=== PATIENT | female | born 1960 | race African-American/Black ===

== ENCOUNTER 2017-05-13 11:52 | Emergency (ER) | payer SELFPAY ==
[2017-05-13 14:54] LABS: ANION GAP 9 (5-19); BLOOD UREA NITROGEN 9 mg/dL (7-20); CALCIUM 10.1 mg/dL (8.4-10.2); CARBON DIOXIDE 29 mmol/L (22-30); CHLORIDE 105 mmol/L (98-107); CREATININE RESULT 0.82 mg/dL (0.52-1.25); GLUCOSE 102 mg/dL (75-110); POTASSIUM 5.2 mmol/L (3.6-5.0); SODIUM 142.9 mmol/L (137-145)
--- NOTE | 2017-05-13 15:09 | ER Document Report ---
ED General - General Chief Complaint: Abdominal Pain Stated Complaint: LEG PAIN Time Seen by Provider: 05/13/17 14:02 Mode of Arrival: Ambulatory Information source: Patient, Friend TRAVEL OUTSIDE OF THE [place] IN LAST 30 DAYS: No - HPI Onset: Last week Onset/Duration: Gradual Severity: Mild - With complaints of muscle cramping to her legs and abdomen. Nausea vomiting diarrhea fevers chills or change in appetite. Her shortness breath does not have a primary care physician and has not seen one in quite some time is not on any medic medicine for any chronic medical conditions Associated symptoms: None Exacerbated by: denies: Walking, Deep breathing - Related Data Allergies/Adverse Reactions: Penicillins Allergy (Verified 10/12/15 00:55) gonzalez Allergy (Uncoded 10/12/15 00:55) mushrooms Allergy (Uncoded 10/12/15 00:55) Past Medical History - General Information source: Patient - Social History Smoking Status: Current Every Day Smoker Chew tobacco use (# tins/day): No Smoking Education Provided: No Frequency of alcohol use: Occasional Drug Abuse: None Family History: Reviewed & Not Pertinent, CAD, Malignancy - Past Medical History Cardiac Medical History: Reports: Hx Hypercholesterolemia, Hx Hypertension Denies: Hx Coronary Artery Disease, Hx Heart Attack Pulmonary Medical History: Reports: Hx Bronchitis, Hx COPD Denies: Hx Asthma, Hx Pneumonia Neurological Medical History: Denies: Hx Cerebrovascular Accident, Hx Seizures Endocrine Medical History: Reports: Hx Diabetes Mellitus Type 2 Renal/ Medical History: Denies: Hx Peritoneal Dialysis Musculoskeltal Medical History: Denies Hx Arthritis Psychiatric Medical History: Denies: Hx Depression Past Surgical History: Reports: Hx Section - X3, Hx Tubal Ligation - Immunizations Immunizations up to date: Yes Hx Diphtheria, Pertussis, Tetanus Vaccination: Yes Review of Systems - Review of Systems Constitutional: No symptoms reported Cardiovascular: No symptoms reported Respiratory: No symptoms reported Gastrointestinal: No symptoms reported - Muscle cramping Genitourinary: No symptoms reported Musculoskeletal: No symptoms reported - Muscle cramping. denies: Back pain, Joint pain, Joint swelling, Muscle pain, Muscle stiffness, Neck pain, Leg swelling, Ankle swelling Hematologic/Lymphatic: denies: No symptoms reported Neurological/Psychological: No symptoms reported Physical Exam - Vital signs Vitals: Temp Pulse Resp BP Pulse Ox 98.1 F 73 18 181/85 H 96 05/13/17 12:09 05/13/17 12:09 05/13/17 12:09 05/13/17 12:09 05/13/17 12:09 - General General appearance: Appears well, Alert - Respiratory Respiratory status: No respiratory distress - Cardiovascular Rhythm: Regular - Abdominal Inspection: Normal - Extremities General upper extremity: Normal inspection, Nontender, Normal color, Normal ROM , Normal temperature General lower extremity: Normal inspection, Nontender, Normal color, Normal ROM , Normal temperature, Normal weight bearing. No: Elba's sign - Neurological Neuro grossly intact: Yes Cognition: Normal Orientation: AAOx4 Esha Coma Scale Eye Opening: Spontaneous Esha Coma Scale Verbal: Oriented Esha Coma Scale Motor: Obeys Commands Esha Coma Scale Total: 15 Speech: Normal Motor strength normal: LUE, RUE, LLE, RLE Sensory: Normal Course - Re-evaluation Re-evalutation: 05/13/17 15:12 Presents emergency department with 1 week history of muscle cramping in her legs and abdomen. Says she has had this before but it was short-lived episodes seem to follow a little bit more this week she is not drinking as much as she usually does inform a water and does drink some caffeine. She denies any chronic medical conditions did not have a primary care physician no headache chest pain cough shortness of breath nausea vomiting dull pain diarrhea constipation urinary symptoms chest pain shortness of breath or history of DVT or pulmonary emboli well-appearing nontoxic negative acute hypo-Vicky anemia. Patient is discharged fluid hydration multivitamin follow primary care physician in 3-4 days and discussed reasons for ED return sooner - Vital Signs Vital signs: Temp Pulse Resp BP Pulse Ox 98.1 F 73 18 181/85 H 96 05/13/17 12:09 05/13/17 12:09 05/13/17 13:56 05/13/17 12:09 05/13/17 12:09 - Laboratory Result Diagrams: 05/13/17 14:00 Laboratory results interpreted by me: 05/13/17 14:00 Potassium 5.2 H Discharge - Discharge Clinical Impression: muscle cramping Condition: Stable Disposition: HOME, SELF-CARE Additional Instructions: You have been seen and evaluated in the emergency department for muscle cramping in your leg and in your stomach area. We have checked her potassium it is not low. At this time I want you to increase your fluids make sure you drink in 8-10 glasses of water per day and given you a family doctor for follow- up to call for an appointment on Sunday to be seen in 3-5 days if this increases worsens or using any concerns whatsoever return to emergency department immediately. Forms: Return to Work Referrals: [facility] [Provider Group] - Follow up in 3-5 days (call In a.m. to get follow-up appointment in 3-5 days return for increasing worsening or new symptoms)
[2017-05-13 15:24] VITALS: BP 188/73
== END 2017-05-13 15:25 | disposition home or self-care (01) ==
LOC: ER 11:52
DX: R25.2 Cramp and spasm (principal); R11.2 Nausea with vomiting, unspecified; R19.7 Diarrhea, unspecified; R50.9 Fever, unspecified; E78.00 Pure hypercholesterolemia, unspecified; I10 Essential (primary) hypertension; J44.9 Chronic obstructive pulmonary disease, unspecified; F17.200 Nicotine dependence, unspecified, uncomplicated; E11.9 Type 2 diabetes mellitus without complications; Z88.0 Allergy status to penicillin; Z98.51 Tubal ligation status
CPT/HCPCS: 36415; 80048; 99283

== ENCOUNTER 2017-10-29 23:27 | Emergency (ER) | payer MEDICAID ==
[2017-10-30] MEDS ORDERED: MORPHINE SULFATE 10 MG/ML INJ IV PRN (01:11)
[2017-10-30] MEDS ORDERED: NORMAL SALINE 1000 ML 1,000 ML IV ONE (01:11)
--- NOTE | 2017-10-30 01:12 | ER Document Report ---
ED General - General Chief Complaint: Abdominal Pain Stated Complaint: ABDOMINAL PAIN Time Seen by Provider: 10/30/17 00:53 Notes: Patient is a 57-year-old woman with a past medical history of COPD and hypertension currently off all antihypertensive medications who presents with 1 week of right-sided abdominal pain. She describes the pain as being located over the entire right side of her abdomen and flank. She states coughing or moving worsens the pain. She states lying flat improves the pain. She thinks that the pain may be related to her extensive amount of coughing. The patient is a dull, constant, aching pain. She denies any associated vomiting, diarrhea or fever. No history of similar symptoms in the past. She has had several sections but no additional abdominal surgeries in the past. She has not seen her primary doctor regarding today's concerns. TRAVEL OUTSIDE OF THE [place] IN LAST 30 DAYS: No - Related Data Allergies/Adverse Reactions: Penicillins Allergy (Verified 10/12/15 00:55) gonzalez Allergy (Uncoded 10/12/15 00:55) mushrooms Allergy (Uncoded 10/12/15 00:55) Past Medical History - General Information source: Patient - Social History Smoking Status: Former Smoker Chew tobacco use (# tins/day): No Frequency of alcohol use: None Drug Abuse: None Lives with: Spouse/Significant other Family History: Reviewed & Not Pertinent, CAD, Malignancy Patient has suicidal ideation: No Patient has homicidal ideation: No - Past Medical History Cardiac Medical History: Reports: Hx Hypercholesterolemia, Hx Hypertension Denies: Hx Coronary Artery Disease, Hx Heart Attack Pulmonary Medical History: Reports: Hx Bronchitis, Hx COPD Denies: Hx Asthma, Hx Pneumonia Neurological Medical History: Denies: Hx Cerebrovascular Accident, Hx Seizures Endocrine Medical History: Reports: Hx Diabetes Mellitus Type 2 Renal/ Medical History: Denies: Hx Peritoneal Dialysis Musculoskeltal Medical History: Denies Hx Arthritis Psychiatric Medical History: Denies: Hx Depression Past Surgical History: Reports: Hx Section - X3, Hx Tubal Ligation - Immunizations Immunizations up to date: Yes Hx Diphtheria, Pertussis, Tetanus Vaccination: Yes Review of Systems - Review of Systems Notes: Constitutional: Negative for fever. HENT: Negative for sore throat. Eyes: Negative for visual changes. Cardiovascular: Negative for chest pain. Respiratory: Negative for shortness of breath. Gastrointestinal: Positive for abdominal pain Genitourinary: Negative for dysuria. Musculoskeletal: Negative for back pain. Skin: Negative for rash. Neurological: Negative for headaches, weakness or numbness. 10 point ROS negative except as marked above and in HPI. Physical Exam - Vital signs Vitals: Temp Pulse Resp BP Pulse Ox 98.6 F 88 18 206/88 H 97 10/29/17 23:33 10/29/17 23:33 10/29/17 23:33 10/29/17 23:33 10/29/17 23:33 Interpretation: Hypertensive Notes: PHYSICAL EXAMINATION: GENERAL: Well-appearing, well-nourished and in no acute distress. HEAD: Atraumatic, normocephalic. EYES: Pupils equal round and reactive to light, extraocular movements intact, sclera anicteric, conjunctiva are normal. ENT: nares patent, oropharynx clear without exudates. Moist mucous membranes. NECK: Normal range of motion, supple without lymphadenopathy LUNGS: Breath sounds clear to auscultation bilaterally and equal. No wheezes rales or rhonchi. HEART: Regular rate and rhythm without murmurs ABDOMEN: Soft, mild diffuse tenderness to the right upper, right middle and right lower quadrants without any otherwise localized tenderness, normoactive bowel sounds. No guarding, no rebound. No masses appreciated. EXTREMITIES: Normal range of motion, no pitting or edema. No cyanosis. NEUROLOGICAL: No focal neurological deficits. Moves all extremities spontaneously and on command. PSYCH: Normal mood, normal affect. SKIN: Warm, Dry, normal turgor, no rashes or lesions noted. Course - Re-evaluation Re-evalutation: 10/30/17 01:11 Patient presents with 1 week of right-sided abdominal pain. On exam patient is overall very well in appearance, does have some focal rebound tenderness to the right lower and right upper quadrant. Negative Asher sign. No CVA tenderness. Patient reports extensive coughing secondary to COPD and believes she may have strained a muscle for abdominal wall but is also concerned that month something more concerning could be ongoing. Differential includes a possible acute appendicitis, less likely acute biliary pathology, and very low clinical suspicion for acute mesenteric ischemia. Given her duration of symptoms and reported degree of pain, will obtain labs and a CT abdomen pelvis to further assess for these pathologies. 10/30/17 03:40 CT and labs are unremarkable. Patient's pain is improved. Repeat abdominal exam remains benign. Given patient's history of pain starting after long periods of coughing I suspect there is a possibility that this could be a strained abdominal wall muscle. At this time will discharge with return precautions and follow-up recommendations. Verbal discharge instructions given a the bedside and opportunity for questions given. Medication warnings reviewed. Patient is in agreement with this plan and has verbalized understanding of return precautions and the need for primary care follow-up in the next 24-72 hours. - Vital Signs Vital signs: Temp Pulse Resp BP Pulse Ox 98.6 F 88 18 206/88 H 97 10/29/17 23:33 10/29/17 23:33 10/29/17 23:33 10/29/17 23:33 10/29/17 23:33 - Laboratory Result Diagrams: 10/30/17 01:10 10/30/17 01:10 Laboratory results interpreted by me: 10/30/17 10/30/17 10/30/17 01:10 01:10 01:10 Lymphocytes % 46.4 H Sodium 146.0 H Calcium 10.5 H Urine Protein 30 H Urine Urobilinogen 4.0 H Urine Ascorbic Acid 20 H - Diagnostic Test Radiology reviewed: Reports reviewed Discharge - Discharge Clinical Impression: Essential hypertension, Right sided abdominal pain Condition: Stable Disposition: HOME, SELF-CARE Additional Instructions: You have been seen in the Emergency Department (ED) for abdominal pain. Your evaluation did not identify a clear cause of your symptoms but was generally reassuring. Your labs and CT scan are normal today. It is possible your symptoms are related to a strained abdominal wall muscle. Please follow up with your doctor as soon as possible regarding today's emergent visit and the symptoms that are bothering you. Return to the ED if your abdominal pain worsens or fails to improve, you develop bloody vomiting, bloody diarrhea, you are unable to tolerate fluids due to vomiting, fever greater than 101, or other symptoms that concern you. Forms: Elevated Blood Pressure Referrals: COLIN CARRILLO DO [Primary Care Provider] - Follow up as needed
[2017-10-30 01:32] LABS: BILIRUBIN,URINE NEGATIVE (NEGATIVE); COLOR,URINE YELLOW; GLUCOSE, URINE NEGATIVE (NEGATIVE); KETONES,URINE NEGATIVE (NEGATIVE); LEUKOCYTE ESTERASE,URINE NEGATIVE (NEGATIVE); NITRITE,URINE NEGATIVE (NEGATIVE); PROTEIN,URINE 30 mg/dL (NEGATIVE); URINE SPECIFIC GRAVITY 1.026
[2017-10-30 01:36] LABS: ABSOLUTE EOSINOPHILS # (AUTO) 0.1 10^3/uL (0.0-0.6); ABSOLUTE LYMPHOCYTES (AUTO) 3.2 10^3/uL (0.5-4.7); ABSOLUTE MONOCYTES (AUTO) 0.6 10^3/uL (0.1-1.4); APPEARANCE,URINE CLEAR; BASOPHILS % (AUTO) 0.6 % (0-2); EOSINOPHILS % (AUTO) 1.1 % (0-6); HEMATOCRIT 44.5 % (36.0-47.0); HEMOGLOBIN 15.3 g/dL (12.0-15.5); LYMPHOCYTES % (AUTO) 46.4 % (13-45); MEAN CORPUSCULAR HEMOGLOBIN 29.9 pg (27.0-33.4); MEAN CORPUSCULAR HGB CONC 34.3 g/dL (32.0-36.0); MEAN CORPUSCULAR VOLUME 87 fl (80-97); MONOCYTES % (AUTO) 8.9 % (3-13); PLATELET COUNT 198 10^3/uL (150-450); TOTAL CELLS COUNTED % (AUTO) 100 %; WHITE BLOOD COUNT 6.9 10^3/uL (4.0-10.5)
[2017-10-30 02:04] LABS: ALANINE AMINOTRANSFERASE 22 U/L (9-52); ALBUMIN 4.9 g/dL (3.5-5.0); ALKALINE PHOSPHATASE 124 U/L (38-126); ANION GAP 13 (5-19); ASPARTATE AMINO TRANSFERASE 20 U/L (14-36); BILIRUBIN,DIRECT 0.3 mg/dL (0.0-0.4); BILIRUBIN,TOTAL 0.3 mg/dL (0.2-1.3); BLOOD UREA NITROGEN 10 mg/dL (7-20); CALCIUM 10.5 mg/dL (8.4-10.2); CARBON DIOXIDE 29 mmol/L (22-30); CHLORIDE 104 mmol/L (98-107); GLUCOSE 109 mg/dL (75-110); POTASSIUM 4.2 mmol/L (3.6-5.0); TOTAL PROTEIN 8.2 g/dL (6.3-8.2)
[2017-10-30] MEDS ORDERED: LIDOCAINE 5% (700 MG) TRANSDERMAL ADH..PATCH TP ONE (03:19)
--- NOTE | 2017-10-30 06:10 | RADIOLOGY REPORT (SQ) ---
EXAM DESCRIPTION: CT ABDOMEN AND PELVIS WITH CONTRAST CLINICAL HISTORY: rlq pain, rebound COMPARISON: None Available. TECHNIQUE: CT of the abdomen and pelvis are performed during IV bolus administration of iodinated contrast DLP: 667.13 mGycm FINDINGS: Abdomen: The liver has normal size and density. No intrahepatic mass or biliary dilatation. No calcified gallstones. The spleen, pancreas, and adrenal glands are unremarkable. The kidneys have normal size and contour without evidence of solid mass or hydronephrosis. Aortoiliac atherosclerosis. IVC is unremarkable. The portal vein patent. The proximal visceral and renal arteries are patent. No free intraperitoneal air. The stomach and duodenum have normal course. Pelvis: Uterus is not enlarged. Urinary bladder is unremarkable. No free pelvic fluid or lymphadenopathy. Scattered diverticula of the colon without pericolic fat stranding. Normal appendix. The visualized lung bases are clear. No destructive bone lesions identified. Degenerative change of the spine. IMPRESSION: 1. No acute inflammatory or obstructive abnormality identified. 2. Diverticulosis without evidence of acute diverticulitis. This exam was performed according to our departmental dose-optimization program, which includes automated exposure control, adjustment of the mA and/or kV according to patient size and/or use of iterative reconstruction technique.
--- NOTE | 2017-10-30 06:18 | ER Document Report ---
Doctor's Note Notes: 10/30/17 06:17 Patient is a 57-year-old female who presented with right-sided abdominal pain likely from coughing initially. Patient now feels better and would like to leave. CT with no acute findings. Patient will be discharged at this time. Of note, patient is hypertensive and she has not taken her hypertension medications this evening. She will take them when she gets home.
[2017-10-30 06:25] VITALS: BP 188/82
== END 2017-10-30 06:20 | disposition home or self-care (01) ==
LOC: ER 23:27
DX: R10.9 Unspecified abdominal pain (principal); I10 Essential (primary) hypertension; J44.9 Chronic obstructive pulmonary disease, unspecified; E78.00 Pure hypercholesterolemia, unspecified; E11.9 Type 2 diabetes mellitus without complications; Z98.51 Tubal ligation status
CPT/HCPCS: 99284; 96361; 96374; 85025; 36415; 80053; 81001; 74177; J2270; J3490; J7030

== ENCOUNTER 2017-11-20 13:37 | Emergency (ER) | payer MEDICAID ==
[2017-11-20 13:53] VITALS: BP 194/82
== END 2017-11-20 14:27 | disposition left against medical advice (07) ==
LOC: ER 13:37
DX: Z53.21 Procedure and treatment not carried out due to patient leaving prior to being seen by health care provider (principal)

== ENCOUNTER → 2017-11-20 | Outpatient (CLI) | payer MEDICAID ==
--- NOTE | 2017-11-20 16:00 | RADIOLOGY REPORT (SQ) ---
EXAM DESCRIPTION: NM HIDA SCAN WITH CCK COMPLETED DATE/TIME: 11/20/2017 1:39 pm REASON FOR STUDY: R10.11 RIGHT UPPER QUADRANT PAIN R10.11 RIGHT UPPER QUADRANT PAIN COMPARISON: None. RADIONUCLIDE AND DOSE: DOSAGE RADIONUCLIDE: 5.4 millicuries Tc99m Mebrofenin. DOSAGE CCK: 1.5 micrograms. DOSAGE MORPHINE: Not required. The route of agent administration: Intravenous TECHNIQUE: Serial imaging right upper quadrant up to 60 minutes following injection of radionuclide. CCK injected after gallbladder visualized. LIMITATIONS: None. FINDINGS: LIVER: Normal visualization without areas of photopenia. INTRA AND EXTRAHEPATIC BILE DUCTS: Normal accumulation of activity. GALLBLADDER: Normal visualization. Calculated Ejection Fraction of 18%. Below the normal value of 35 % or greater. PHYSICAL RESPONSE: Patients presenting complaint was reproduced. OTHER: No other significant finding. IMPRESSION: LOW GALLBLADDER EJECTION FRACTION. EVIDENCE FOR BILIARY DYSKINESIS. NO CYSTIC OR COMMO N DUCT OBSTRUCTION. TECHNICAL DOCUMENTATION: JOB ID: [id number] [employer]- All Rights Reserved
== END ==
LOC: RAD 11:11
PROVIDERS: ATTEND Physician Assistant
DX: R10.11 Right upper quadrant pain (principal)
CPT/HCPCS: 78227; J2805; A9537; Q9969

== ENCOUNTER → 2017-12-20 | Outpatient (CLI) | payer MEDICAID ==
--- NOTE | 2017-12-20 18:02 | RADIOLOGY REPORT (SQ) ---
EXAM DESCRIPTION: CT CHEST WITHOUT COMPLETED DATE/TIME: 12/20/2017 2:19 pm REASON FOR STUDY: COUGH (R05), PULMONARY NODULE (R91.1) R91.1 SOLITARY PULMONARY NODULE COMPARISON: 06/09/2018 TECHNIQUE: CT scan performed of the chest without intravenous contrast. Images reviewed with lung, soft tissue and bone windows. Reconstructed coronal and sagittal MPR images reviewed. All images st ored on PACS. All CT scanners at this facility use dose modulation, iterative reconstruction, and/or weight based d osing when appropriate to reduce radiation dose to as low as reasonably achievable (ALARA). [facility]: Dose Right [facility]: CareDose [facility]: Dose Right [facility]: Teradose 4D [facility]: Smart [employer] RADIATION DOSE: CT Rad equipment meets quality standard of care and radiation dose reduction techniq ues were employed. CTDIvol: 6.1 mGy. DLP: 229 mGy-cm. mGy. LIMITATIONS: No technical limitations. FINDINGS: LUNGS AND PLEURA: Mild centrilobular emphysema. No masses, infiltrates, pneumothorax. Ti ny calcified granulomas. No pleural effusions, calcifications. HILAR AND MEDIASTINAL STRUCTURES: Calcified nodes. No obvious aneurysm. HEART AND VASCULAR STRUCTURES: No aneurysm. No pericardial effusion. UPPER ABDOMEN: No significant findings. Limited exam. THYROID AND OTHER SOFT TISSUES: No masses. No adenopathy. BONES: No acute finding. HARDWARE: None in the chest. OTHER: No other significant findings. IMPRESSION: Mild centrilobular emphysema. No acute findings. TECHNICAL DOCUMENTATION: JOB ID: [id number] Quality ID # [id number]: Final reports with documentation of one or more dose reduction techniques (e.g., Au tomated exposure control, adjustment of the mA and/or kV according to patient size, use of iterative reconstruction technique) 2010 [email or web address]- All Rights Reserved Reading location - IP/workstation name: [email or web address]
== END ==
LOC: RAD 13:38
PROVIDERS: ATTEND Internal Medicine Critical Care Medicine
DX: R91.1 Solitary pulmonary nodule (principal); R05 Cough; R06.09 Other forms of dyspnea; R12 Heartburn; R04.2 Hemoptysis; K21.9 Gastro-esophageal reflux disease without esophagitis; F17.200 Nicotine dependence, unspecified, uncomplicated
CPT/HCPCS: 71250

== ENCOUNTER → 2018-03-28 | Outpatient (CLI) | payer MEDICAID ==
--- NOTE | 2018-03-28 12:37 | RADIOLOGY REPORT (SQ) ---
EXAM DESCRIPTION: CHEST PA/LATERAL COMPLETED DATE/TIME: 03/28/2018 12:30 pm REASON FOR STUDY: COUGH R05 COUGH COMPARISON: 08/15/2016. NUMBER OF VIEWS: Two view. TECHNIQUE: Frontal and lateral radiographic views of the chest acquired. LIMITATIONS: None. FINDINGS: LUNGS AND PLEURA: No opacities, masses or pneumothorax. No pleural effusion. Attenuated bl ood vessels and flattened ute-diaphragms. MEDIASTINUM AND HILAR STRUCTURES: No masses. No contour abnormalities. HEART AND VASCULAR STRUCTURES: Heart normal in size and contour. No evidence for failure. BONES: No acute findings. HARDWARE: None in the chest. OTHER: No other significant finding. IMPRESSION: COPD. NO ACUTE RADIOGRAPHIC FINDING IN THE CHEST. TECHNICAL DOCUMENTATION: JOB ID: [id number] [employer]- All Rights Reserved Reading location - IP/workstation name: [email or web address]
== END ==
LOC: OD 12:14
PROVIDERS: ATTEND Nurse Practitioner Family
DX: R05 Cough (principal)
CPT/HCPCS: 71046

== ENCOUNTER 2018-03-29 16:58 | Emergency (ER) | payer MEDICAID ==
[2018-03-29] MEDS ORDERED: ALBUTEROL SULFATE 0.083% NEB 2.5 MG/3 ML AMPUL NEB ONE (17:24)
[2018-03-29] MEDS ORDERED: GUAIFENESIN/CODEINE PHOS 100-10 MG/ 5 ML UDC PO ONE (17:25)
--- NOTE | 2018-03-29 17:26 | ER Document Report ---
ED General - General Mode of Arrival: Ambulatory Information source: Patient TRAVEL OUTSIDE OF THE [place]. IN LAST 30 DAYS: No <EVELYNE PEDERSON - Last Filed: 03/29/18 19:40> <ALEX GANDHI - Last Filed: 03/29/18 23:21> - General Chief Complaint: Shortness Of Breath Stated Complaint: BREATHING DIFFICULTY Time Seen by Provider: 03/29/18 17:13 Notes: Patient is a 57 year old female with COPD and hypertension presents to the emergency department complaining of a cough and difficulty breathing onset yesterday. Patient states she was excessivley sneezing and had some congestion 3 days ago and decided to take some NyQuil which she states alleviated her symptoms until yesterday. Patient states she began to excessively cough and have shortness of breath so she decided to go to urgent care where she was given a shot and prescribed steroids, antibiotics and Tessalon Perles. Patient states these medications along with her inhaler has not helped her coughing so she proceeded to come to the emergency department. Patient states she has used her inhaler 2x today without any relief. Patient also mentions being a little confused today. Patient's PCP is Dr. Rivas. Patient is also currently prescribed Amlodipine and Lisinopril. She states she was declared a diabetic but does not agree with diagnosis. (EVELYNE PEDERSON) - Related Data Allergies/Adverse Reactions: Penicillins Allergy (Verified 11/20/17 13:39) gonzalez Allergy (Uncoded 11/20/17 13:39) mushrooms Allergy (Uncoded 11/20/17 13:39) Past Medical History - General Information source: Patient - Social History Smoking Status: Current Every Day Smoker - states she quit 1 day ago Cigarette use (# per day): Yes Chew tobacco use (# tins/day): No Frequency of alcohol use: None Family History: Reviewed & Not Pertinent, CAD, Malignancy - Past Medical History Cardiac Medical History: Reports: Hx Hypercholesterolemia, Hx Hypertension Pulmonary Medical History: Reports: Hx Bronchitis, Hx COPD Endocrine Medical History: Reports: Hx Diabetes Mellitus Type 2 Past Surgical History: Reports: Hx Section - X3, Hx Tubal Ligation - Immunizations Immunizations up to date: Yes Hx Diphtheria, Pertussis, Tetanus Vaccination: Yes <EVELYNE PEDERSON - Last Filed: 03/29/18 19:40> Review of Systems - Review of Systems Constitutional: No symptoms reported EENT: No symptoms reported Cardiovascular: No symptoms reported Respiratory: See HPI, Cough, Short of breath Gastrointestinal: No symptoms reported Genitourinary: No symptoms reported Female Genitourinary: No symptoms reported Musculoskeletal: No symptoms reported Skin: No symptoms reported Hematologic/Lymphatic: No symptoms reported Neurological/Psychological: No symptoms reported -: Yes All other systems reviewed and negative <EVELYNE PEDERSON - Last Filed: 03/29/18 19:40> Physical Exam <EVELYNE PEDERSON - Last Filed: 03/29/18 19:40> <ALEX GANDHI - Last Filed: 03/29/18 23:21> - Vital signs Vitals: Temp Pulse Resp BP Pulse Ox 98.2 F 54 L 18 174/96 H 97 03/29/18 17:30 03/29/18 17:30 03/29/18 17:30 03/29/18 17:30 03/29/18 17:30 - Notes Notes: GENERAL: Alert, interacts well. No acute distress. HEAD: Normocephalic, atraumatic. EYES: Pupils equal, round, and reactive to light. Extraocular movements intact. ENT: Oral mucosa moist, tongue midline. NECK: Full range of motion. Supple. Trachea midline. LUNGS: Clear to auscultation bilaterally, no wheezes, rales, or rhonchi. No respiratory distress. HEART: Regular rate and rhythm. No murmurs, gallops, or rubs. ABDOMEN: Soft, non-tender. Non-distended. Bowel sounds present in all 4 quadrants. EXTREMITIES: Moves all 4 extremities spontaneously. NEUROLOGICAL: Alert and oriented x3. Normal speech. . PSYCH: Normal affect, normal mood. SKIN: Warm, dry, normal turgor. No rashes or lesions noted. (EVELYNE PEDERSON) Course - Laboratory Result Diagrams: 03/29/18 17:19 03/29/18 17:19 <EVELYNE PEDERSON - Last Filed: 03/29/18 19:40> - Laboratory Result Diagrams: 03/29/18 17:19 03/29/18 17:19 <ALEX GANDHI - Last Filed: 03/29/18 23:21> - Re-evaluation Re-evalutation: 03/29/18 20:27 CBC shows leukocytosis 11.6 consistent with both a bacterial bronchitis and steroid administration within the past 2 days, chemistries unremarkable, patient declines another x-ray as she had one 2 days ago at urgent care and states that it was negative for pneumonia. I agree as she is already taking X. Patient was given a breathing treatment here and codeine-containing cough syrup, states that her cough has mostly resolved but she still is a little bit of a rattle in her chest. Patient does still have a small amount of tachycardia however this is not unexpected given the albuterol. Patient will be ambulated with a pulse oximeter and so long as she does not become hypoxic or significantly tachypneic patient will be discharged to home. 03/29/18 21:08 Patient did not become hypoxic or tachypnea, there was some tachycardia but did not cause her any distress while walking. Patient will be discharged to home, instructed to continue using her albuterol inhaler, prescribed Phenergan with codeine cough syrup as well as guaifenesin. Asked to return for chest pain, worsening shortness of breath, worsening cough or any new or concerning symptoms. She already has steroids and antibiotics at home. (ALEX GANDHI) - Vital Signs Vital signs: Temp Pulse Resp BP Pulse Ox 98.2 F 54 L 24 H 168/85 H 94 03/29/18 17:30 03/29/18 17:30 03/29/18 21:01 03/29/18 21:01 03/29/18 21:01 - Laboratory Laboratory results interpreted by me: 03/29/18 03/29/18 17:19 17:19 WBC 11.6 H RBC 5.50 H Hgb 16.7 H Hct 48.2 H RDW 14.8 H Lymphocytes % 47.7 H Absolute Lymphocytes 5.6 H Glucose 159 H Calcium 10.3 H Total Protein 8.7 H Discharge <EVELYNE PEDERSON - Last Filed: 03/29/18 19:40> <ALEX GANDHI - Last Filed: 03/29/18 23:21> - Discharge Clinical Impression: Acute bronchitis Qualifiers: Bronchitis organism: unspecified organism Qualified Code(s): J20.9 - Acute bronchitis, unspecified Condition: Stable Disposition: HOME, SELF-CARE Additional Instructions: Please use your albuterol inhaler up to 2 puffs every 4 hours as needed for cough. You may take the Tessalon Perles that were prescribed to previously 1 capsule every 8 hours as needed for cough. You may also use the cough syrup that I have prescribed here up to every 6 hours for cough. Please also use a humidifier, it may help to decrease your cough. Please continue taking the antibiotics and steroids prescribed you from urgent care until they are gone. You should take guaifenesin (Mucinex) as directed on the box to thin out her mucus. Do not take any combination medications. Return to the emergency department for chest pain, worsening shortness of breath , fevers or any new or concerning symptoms. Prescriptions: Phenylephrine HCl/Cod/Prometh [Phenergan Vc-Codeine Syrup] 5 ml PO QIDP #120 syrup Referrals: MADHU DIALLO FNP-C [NURSE PRACTITIONER] - Follow up as needed Scribe Attestation: 03/29/18 23:21 I personally performed the services described in the documentation, reviewed and edited the documentation which was dictated to the scribe in my presence, and it accurately records my words and actions. (ALEX GANDHI) Scribe Documentation - Scribe Written by Laurie:: Laurie Nolan, 03/29/2018 17:47 acting as scribe for :: Camron <EVELYNE PEDERSON - Last Filed: 03/29/18 19:40>
[2018-03-29 17:52] LABS: ABSOLUTE LYMPHOCYTES (AUTO) 5.6 10^3/uL (0.5-4.7); ABSOLUTE MONOCYTES (AUTO) 0.7 10^3/uL (0.1-1.4); ABSOLUTE NEUT (AUTO) 5.3 10^3/uL (1.7-8.2); ALANINE AMINOTRANSFERASE 35 U/L (9-52); ALKALINE PHOSPHATASE 121 U/L (38-126); ANION GAP 19 (5-19); ASPARTATE AMINO TRANSFERASE 35 U/L (14-36); BASOPHILS % (AUTO) 0.1 % (0-2); BILIRUBIN,DIRECT 0.4 mg/dL (0.0-0.4); BILIRUBIN,TOTAL 0.6 mg/dL (0.2-1.3); BLOOD UREA NITROGEN 15 mg/dL (7-20); CALCIUM 10.3 mg/dL (8.4-10.2); CARBON DIOXIDE 23 mmol/L (22-30); CHLORIDE 103 mmol/L (98-107); EOSINOPHILS % (AUTO) 0.1 % (0-6); GLUCOSE 159 mg/dL (75-110); HEMATOCRIT 48.2 % (36.0-47.0); HEMOGLOBIN 16.7 g/dL (12.0-15.5); LYMPHOCYTES % (AUTO) 47.7 % (13-45); MEAN CORPUSCULAR HEMOGLOBIN 30.4 pg (27.0-33.4); MEAN CORPUSCULAR HGB CONC 34.8 g/dL (32.0-36.0); MEAN CORPUSCULAR VOLUME 88 fl (80-97); MONOCYTES % (AUTO) 6.3 % (3-13); PLATELET COUNT 189 10^3/uL (150-450); POTASSIUM 4.3 mmol/L (3.6-5.0); RED CELL DISTRIBUTION WIDTH 14.8 % (11.5-14.0); SEGMENTED NEUTROPHILS % (AUTO) 45.8 % (42-78); SODIUM 144.5 mmol/L (137-145); TOTAL CELLS COUNTED % (AUTO) 100 %; TOTAL PROTEIN 8.7 g/dL (6.3-8.2); WHITE BLOOD COUNT 11.6 10^3/uL (4.0-10.5)
[2018-03-29 21:14] VITALS: BP 168/85
== END 2018-03-29 21:27 | disposition home or self-care (01) ==
LOC: ER 16:58
DX: J20.9 Acute bronchitis, unspecified (principal); R06.02 Shortness of breath; F17.210 Nicotine dependence, cigarettes, uncomplicated; E78.00 Pure hypercholesterolemia, unspecified; I10 Essential (primary) hypertension; J44.9 Chronic obstructive pulmonary disease, unspecified; E11.9 Type 2 diabetes mellitus without complications; Z98.51 Tubal ligation status
CPT/HCPCS: 36415; 80053; 85025; 94640; 99285

== ENCOUNTER → 2018-05-30 | Outpatient (CLI) | payer SELFPAY ==
--- NOTE | 2018-05-31 09:33 | WOMENS IMAGING REPORT ---
EXAM DESCRIPTION: 3D SCREENING MAMMO BILAT COMPLETED DATE/TIME: 05/30/2018 11:34 am REASON FOR STUDY: SCREENING MAMMO Z12.31 ENCNTR SCREEN MAMMOGRAM FOR MALIGNANT NEOPLASM OF UNIQUE COMPARISON: 05/18/2015. TECHNIQUE: Standard craniocaudal and mediolateral oblique views of each breast recorded using digita l acquisition and breast tomosynthesis. LIMITATIONS: None. FINDINGS: No masses, calcifications or architectural distortion. No areas of suspicion. Read with the assistance of CAD. .[facility] - R2 Cenova Version 1.3 .[facility] Imaging - R2 Cenova Version 1.3 .[facility] Imaging - R2 Cenova Version 2.4 .[facility] - R2 Cenova Version 2.4 .[facility] - R2 [employer] Version 9.2 IMPRESSION: NORMAL MAMMOGRAM. BIRADS 1. BREAST DENSITY: b. There are scattered areas of fibroglandular density. BIRAD: 1 NEGATIVE RECOMMENDATION: ROUTINE SCREENING COMMENT: The patient has been notified of the results by letter per SA requirements. Additional no tification policies are in place for contacting patient with suspicious or incomplete findings. Quality ID #225: The [employer] recommends an annual screening mammogram for women aged 40 years or over. This facility utilizes a reminder system to ensure that all patients receive reminder letters, and/or direct phone calls for appointments. This includes reminders for routine scr eening mammograms, diagnostic mammograms, or other Breast Imaging Interventions when appropriate. Th is patient will be placed in the appropriate reminder system. The [employer] (ACR) has developed recommendations for screening MRI of the breast s in certain patient populations, to be used in conjunction with mammography. Breast MRI surveillanc e may be appropriate for women with more than 20% lifetime risk of developing breast cancer as deter mined by genetic testing, significant family history of the disease, or history of mantle radiation f or Hodgkins Disease. ACR Practice Guidelines 2008. DBT Technology DBT is a type of tomographic mammography. With conventional mammography, overlapping breast tissue ma y make lesions difficult to detect, even with good compression. DBT uses an x-ray tube that rotates a round the breast, taking images at different angles. These images are then combined to create thin sl ices of the breast that the radiologist can view as a 3D reconstruction. The [employer] unit can perform full-field digital mammograms (2D imaging); or DBT (3D imaging); or both, in a combination mode that quickly performs both the mammogram and the tomosynthesis scan while the breast is still compressed. PQRS 6045F: Fluoroscopic imaging is not utilized for breast tomosynthesis. TECHNICAL DOCUMENTATION: FINDING NUMBER: (1) ASSESSMENT: (1) JOB ID: [id number] [employer]- All Rights Reserved Reading location - IP/workstation name: [email or web address]
== END ==
LOC: WI 07:49
PROVIDERS: ATTEND Physician Assistant
DX: Z12.31 Encounter for screening mammogram for malignant neoplasm of breast (principal)
CPT/HCPCS: 77063; 77067

== ENCOUNTER → 2019-06-04 | Outpatient (CLI) | payer MEDICAID ==
--- NOTE | 2019-06-04 10:45 | WOMENS IMAGING REPORT ---
EXAM DESCRIPTION: BILAT SCREENING MAMMO W/CAD COMPLETED DATE/TIME: 06/04/2019 9:20 am REASON FOR STUDY: Z12.31 ENCOUNTER FOR SCREENING MAMMOGRAM FOR MALIGNANT NEOPLASM OF BREAST Z12.31 ENCNTR SCREEN MAMMOGRAM FOR MALIGNANT NEOPLASM OF UNIQUE COMPARISON: 05/30/2018 and 05/18/2015. EXAM PARAMETERS: Standard craniocaudal and mediolateral oblique views of each breast recorded using digital acquisition. Read with the assistance of CAD. .[facility] - [employer] Miter Sawyer Version 9.2 LIMITATIONS: None. FINDINGS: No suspicious masses, suspicious calcifications or architectural distortion. No areas of c oncern. IMPRESSION: Negative MAMMOGRAM. BIRADS 1 BREAST DENSITY: b. There are scattered areas of fibroglandular density. BIRAD: ASSESSMENT: 1 NEGATIVE RECOMMENDATION: ROUTINE SCREENING COMMENT: The patient has been notified of the results by letter per MQSA requirements. Additional no tification policies are in place for contacting patient with suspicious or incomplete findings. Quality ID #225: The [employer] recommends an annual screening mammogram for women aged 40 years or over. This facility utilizes a reminder system to ensure that all patients receive reminder letters, and/or direct phone calls for appointments. This includes reminders for routine scr eening mammograms, diagnostic mammograms, or other Breast Imaging Interventions when appropriate. Th is patient will be placed in the appropriate reminder system. TECHNICAL DOCUMENTATION: FINDING NUMBER: (1) ASSESSMENT: (1) JOB ID: [id number] [employer]- All Rights Reserved Reading location - IP/workstation name: [email or web address]
== END ==
LOC: WI 08:54
PROVIDERS: ATTEND Family Medicine
DX: Z12.31 Encounter for screening mammogram for malignant neoplasm of breast (principal)
CPT/HCPCS: 77067

== ENCOUNTER → 2019-07-14 | Outpatient (CLI) | payer MEDICAID ==
--- NOTE | 2019-07-14 13:26 | RADIOLOGY REPORT (SQ) ---
EXAM DESCRIPTION: CHEST 2 VIEWS COMPLETED DATE/TIME: 07/14/2019 11:29 am REASON FOR STUDY: BRONCHITIS COMPARISON: CT chest 12/20/2017 Chest films 08/15/2016, 10/12/2015 EXAM PARAMETERS: NUMBER OF VIEWS: two views TECHNIQUE: Digital Frontal and Lateral radiographic views of the chest acquired. RADIATION DOSE: NA LIMITATIONS: none FINDINGS: LUNGS AND PLEURA: Mild flattening of the hemidiaphragms from hyperinflation. No focal inf iltrates. No pleural effusion or pneumothorax. MEDIASTINUM AND HILAR STRUCTURES: Calcified left hilar lymph node unchanged HEART AND VASCULAR STRUCTURES: Heart normal size. No evidence for failure. BONES: No acute findings. HARDWARE: None in the chest. OTHER: No other significant finding. IMPRESSION: Hyperinflation from obstructive disease. No acute findings TECHNICAL DOCUMENTATION: JOB ID: [id number] [employer]- All Rights Reserved Reading location - IP/workstation name: [email or web address]
== END ==
LOC: RAD 11:06
PROVIDERS: ATTEND Family Medicine
DX: J40 Bronchitis, not specified as acute or chronic (principal)
CPT/HCPCS: 71046

== ENCOUNTER 2019-12-26 18:58 | Emergency (ER) | payer MEDICAID ==
[2019-12-26] MEDS ORDERED: ONDANSETRON 4 MG TAB.RAPDIS PO ONE (19:47)
--- NOTE | 2019-12-26 19:51 | ER Document Report ---
HPI - HPI Time Seen by Provider: 12/26/19 19:43 Pain Level: 2 Notes: CHIEF COMPLAINT: Flulike symptoms for for 5 days HPI: 59-year-old female presenting to the emergency department complaining of flulike symptoms over the last 5 days. Had body ache for 5 days ago with slight cough and runny nose. Symptoms have improved but she states that she has developed some nausea without vomiting. No dysuria. No abdominal pain. States she was back at the hospital today and believes that she had contracted the flu when she was in the hospital with her for 5 days ago. Patient states that her had a positive flu test today while in the ER and she wanted to make sure that she was not going to have symptoms as extreme as his. ROS: See HPI - all other systems were reviewed and are otherwise negative Constitutional: no fever Eyes: no drainage, no blurred vision ENT: + runny nose, no sore throat Cardiovascular: no chest pain Resp: no SOB, + cough GI: no vomiting, no diarrhea, no abdominal pain, positive nausea : no dysuria Integumentary: no rash Allergy: no hives Musculoskeletal: no extremity pain or swelling Neurological: no numbness/tingling, no weakness MEDICATIONS: I agree with the patient medications as charted by the RN. ALLERGIES: I agree with the allergies as charted by the RN. PAST MEDICAL HISTORY/PAST SURGICAL HISTORY: Reviewed and agree as charted by RN. SOCIAL HISTORY: Reviewed and agree as charted by RN. FAMILY HISTORY: No significant familial comorbid conditions directly related to patient complaint EXAM: Reviewed vital signs as charted by RN. CONSTITUTIONAL: Alert and oriented and responds appropriately to questions. Well-appearing; well-nourished HEAD: Normocephalic; atraumatic EYES: PERRL; Conjunctivae clear, sclerae non-icteric ENT: normal nose; no rhinorrhea; moist mucous membranes; pharynx without lesions noted, no uvula edema or deviation, no tonsillar hypertrophy, phonation normal NECK: Supple without meningismus; non-tender; no cervical lymphadenopathy, no masses CARD: RRR; no murmurs, no clicks, no rubs, no gallops; symmetric distal pulses RESP: Normal chest excursion without splinting or tachypnea; breath sounds clear and equal bilaterally; no wheezes, no rhonchi, no rales ABD/GI: Normal bowel sounds; non-distended; soft, non-tender, no rebound, no guarding; no palpable organomegaly or masses. BACK: The back appears normal and is non-tender to palpation, there is no CVA tenderness EXT: Normal ROM in all joints; non-tender to palpation; no cyanosis, no effusions, no edema SKIN: Normal color for age and race; warm; dry; good turgor; no acute lesions noted NEURO: Moves all extremities equally; Motor and sensory function intact PSYCH: The patient's mood and manner are appropriate. Grooming and personal hygiene are appropriate. MDM: 59-year-old female with flulike symptoms over the last for 5 days. was apparently tested positive for flu today. She complains of nausea but has not had vomiting. No fevers. Mild cough but not short of breath. She declines Tamiflu, she declines other testing at this time would like something for nausea. Will place patient on Zofran, discharged to follow-up with PCP - REPRODUCTIVE Reproductive: DENIES: : Past Medical History - Social History Smoking Status: Current Every Day Smoker Chew tobacco use (# tins/day): No Frequency of alcohol use: None Drug Abuse: None Family History: Reviewed & Not Pertinent, CAD, Malignancy Patient has suicidal ideation: No Patient has homicidal ideation: No - Past Medical History Cardiac Medical History: Reports: Hx Hypercholesterolemia, Hx Hypertension Denies: Hx Coronary Artery Disease, Hx Heart Attack Pulmonary Medical History: Reports: Hx Bronchitis, Hx COPD Denies: Hx Asthma, Hx Pneumonia Neurological Medical History: Denies: Hx Cerebrovascular Accident, Hx Seizures Endocrine Medical History: Reports: Hx Diabetes Mellitus Type 2 Renal/ Medical History: Denies: Hx Peritoneal Dialysis Musculoskeletal Medical History: Denies Hx Arthritis Psychiatric Medical History: Denies: Hx Depression Past Surgical History: Reports: Hx Section - X3, Hx Tubal Ligation - Immunizations Immunizations up to date: Yes Hx Diphtheria, Pertussis, Tetanus Vaccination: Yes Vertical Provider Document - INFECTION CONTROL TRAVEL OUTSIDE OF THE [place] IN LAST 30 DAYS: No Course - Vital Signs Vital signs: Temp Pulse Resp BP Pulse Ox 98.7 F 86 20 182/80 H 95 12/26/19 19:17 12/26/19 19:17 12/26/19 19:17 12/26/19 19:17 12/26/19 19:17 Discharge - Discharge Clinical Impression: Nausea, Flu-like symptoms Condition: Stable Disposition: HOME, SELF-CARE Additional Instructions: Hydrate well at home. Take Zofran for nausea or vomiting. Follow-up with your primary care provider on Sunday if symptoms persist Prescriptions: Ondansetron [Zofran Odt 4 mg Tablet] 1 - 2 tab PO Q4H PRN #15 tab.rapdis PRN Reason: For Nausea/Vomiting Referrals: COLIN CARRILLO DO [Primary Care Provider] - Follow up as needed
[2019-12-26 20:28] VITALS: BP 185/90
== END 2019-12-26 20:33 | disposition home or self-care (01) ==
LOC: ER 18:58
DX: J11.1 Influenza due to unidentified influenza virus with other respiratory manifestations (principal); R11.0 Nausea; R05 Cough; R09.89 Other specified symptoms and signs involving the circulatory and respiratory systems; F17.200 Nicotine dependence, unspecified, uncomplicated; I10 Essential (primary) hypertension; J44.9 Chronic obstructive pulmonary disease, unspecified; E11.9 Type 2 diabetes mellitus without complications
CPT/HCPCS: 99283; S0119

== ENCOUNTER → 2020-05-18 | Outpatient (CLI) | payer MEDICAID ==
--- NOTE | 2020-05-18 11:07 | RADIOLOGY REPORT (SQ) ---
EXAM DESCRIPTION: NM HIDA SCAN WITH CCK IMAGES COMPLETED DATE/TIME: 05/18/2020 10:22 am REASON FOR STUDY: RUQ ABDOMINAL PAIN R10.11 RIGHT UPPER QUADRANT PAIN COMPARISON: 11/20/2017 RADIONUCLIDE AND DOSE: DOSAGE RADIONUCLIDE: 5.3 millicuries Tc99m Mebrofenin. DOSAGE CCK: 1.4 micrograms. DOSAGE MORPHINE: Not required. The route of agent administration: Intravenous TECHNIQUE: Serial imaging right upper quadrant up to 60 minutes following injection of radionuclide. CCK injected after gallbladder visualized. LIMITATIONS: None. FINDINGS: LIVER: Normal visualization without areas of photopenia. INTRA AND EXTRAHEPATIC BILE DUCTS: Normal accumulation of activity. GALLBLADDER: Normal visualization. Calculated Ejection Fraction of 21%. Below the normal value of 35 % or greater. PHYSICAL RESPONSE: Patients presenting complaint was reproduced. OTHER: No other significant finding. IMPRESSION: LOW GALLBLADDER EJECTION FRACTION. EVIDENCE FOR BILIARY DYSKINESIS. NO CYSTIC OR COMMO N DUCT OBSTRUCTION. TECHNICAL DOCUMENTATION: JOB ID: [id number] 2010 [employer]- All Rights Reserved Reading location - IP/workstation name: [email or web address]
== END ==
LOC: RAD 07:59
PROVIDERS: ATTEND Family Medicine
DX: R10.11 Right upper quadrant pain (principal)
CPT/HCPCS: 78227; J2805; A9537; Q9969

== ENCOUNTER 2020-06-25 05:20 | Day surgery (SDC) | payer MEDICAID ==
[2020-06-22 10:53] LABS: HEMATOCRIT 46.1 % (36.0-47.0); HEMOGLOBIN 15.5 g/dL (12.0-15.5); MEAN CORPUSCULAR HEMOGLOBIN 29.4 pg (27.0-33.4); MEAN CORPUSCULAR HGB CONC 33.7 g/dL (32.0-36.0); MEAN CORPUSCULAR VOLUME 87 fl (80-97); PLATELET COUNT 176 10^3/uL (150-450); RED BLOOD COUNT 5.29 10^6/uL (3.72-5.28); RED CELL DISTRIBUTION WIDTH 13.8 % (11.5-14.0); WHITE BLOOD COUNT 5.2 10^3/uL (4.0-10.5)
[2020-06-22 11:37] LABS: ALBUMIN 4.7 g/dL (3.5-5.0); ALKALINE PHOSPHATASE 117 U/L (38-126); ANION GAP 8 (5-19); ASPARTATE AMINO TRANSFERASE 22 U/L (14-36); BILIRUBIN,DIRECT 0.3 mg/dL (0.0-0.4); BILIRUBIN,TOTAL 0.4 mg/dL (0.2-1.3); BLOOD UREA NITROGEN 17 mg/dL (7-20); CALCIUM 10.1 mg/dL (8.4-10.2); CARBON DIOXIDE 32 mmol/L (22-30); CHLORIDE 106 mmol/L (98-107); GLUCOSE 125 mg/dL (75-110); POTASSIUM 4.7 mmol/L (3.6-5.0); TOTAL PROTEIN 7.7 g/dL (6.3-8.2)
--- NOTE | 2020-06-22 12:05 | RADIOLOGY REPORT (SQ) ---
EXAM DESCRIPTION: CHEST PA/LATERAL IMAGES COMPLETED DATE/TIME: 06/22/2020 10:52 am REASON FOR STUDY: PRE-OP COMPARISON: 07/14/2019 EXAM PARAMETERS: NUMBER OF VIEWS: two views TECHNIQUE: Digital Frontal and Lateral radiographic views of the chest acquired. RADIATION DOSE: NA LIMITATIONS: none FINDINGS: LUNGS AND PLEURA: No opacities, masses or pneumothorax. No pleural effusion. MEDIASTINUM AND HILAR STRUCTURES: No masses or contour abnormalities. HEART AND VASCULAR STRUCTURES: Heart normal size. No evidence for failure. BONES: No acute findings. HARDWARE: None in the chest. OTHER: No other significant finding. IMPRESSION: NO SIGNIFICANT RADIOGRAPHIC FINDING IN THE CHEST. TECHNICAL DOCUMENTATION: JOB ID: [id number] 2010 [employer]- All Rights Reserved Reading location - IP/workstation name: [email or web address]
--- NOTE | 2020-06-22 12:57 | EKG REPORT ---
SEVERITY:- ABNORMAL ECG - SINUS ARRHYTHMIA CONSIDER LEFT VENTRICULAR HYPERTROPHY BORDERLINE PROLONGED QT INTERVAL NONSPECIFIC LATERAL ST-T CHANGES : Confirmed by: Franco Small MD 22-Jun-2020 12:56:05
[~2020-06-25 05:20] MED LIST: ACETAMINOPHEN 325 MG TABLET ONE; ACETAMINOPHEN 325 MG TABLET PO PRN; IBUPROFEN 800 MG in NORMAL SALINE 250 ML IV PRN; LACTATED RINGERS 1000 ML IV PRN; LIDOCAINE 0.5% INJ-PF (5 MG/ML) 50 ML SDV SUBCUT PRN; VANCOMYCIN HCL 1,000 MG in DEXTROSE 5%-WATER 250 ML IV PRN
[2020-06-25] MEDS ORDERED: METOPROLOL TARTRATE 25 MG TABLET ONE (05:31)
[2020-06-25 06:01] LABS: POTASSIUM 4.5 mmol/L (3.6-5.0)
[2020-06-25] MEDS ORDERED: HYDROMORPHONE HCL INJ/PF 2 MG/ML AMPULE ONE (06:59)
[2020-06-25] MEDS ORDERED: FENTANYL CITRATE INJ/PF 100 MCG/2 ML AMPUL ONE (06:59)
[2020-06-25] MEDS ORDERED: MIDAZOLAM 2 MG/2 ML INJ ONE (06:59)
[2020-06-25] MEDS ORDERED: PROPOFOL INJ 200 MG/20 ML VIAL IV ONE (07:00)
[2020-06-25] MEDS ORDERED: BUPIVACAINE HCL 0.25 % INJ/PF (2.5 MG/1 ML) 30 ML VIAL ONE (07:10)
[2020-06-25] MEDS ORDERED: FENTANYL CITRATE INJ/PF 100 MCG/2 ML AMPUL IV PRN ×3 (08:11)
[2020-06-25] MEDS ORDERED: MEPERIDINE HCL/PF INJ 25 MG/1 ML DISP.SYRIN IV PRN (08:11)
[2020-06-25] MEDS ORDERED: PROMETHAZINE HCL INJ 25 MG/1 ML VIAL IV PRN ×2 (08:11)
[2020-06-25] MEDS ORDERED: MORPHINE SULFATE 10 MG/ML INJ IV PRN (08:11)
[2020-06-25] MEDS ORDERED: DIPHENHYDRAMINE HCL 50 MG/ML VIAL IV PRN (08:11)
--- NOTE | 2020-06-25 08:18 | Discharge Summary ---
Discharge Summary (SDC) - Discharge Final Diagnosis: Biliary dyskinesia Date of Surgery: 06/25/20 Discharge Date: 06/25/20 Condition: Stable Treatment or Instructions: Discharge home. Diet as tolerated. Activity: Nonstrenuous. No lifting greater than 10 pounds x 2 weeks. Follow-up with [facility] in 7 to 10 days. [place] 10/3 2 5 mg p.o. every 6 hours as needed for pain. Okay to shower starting Sunday. No swimming pools or tub baths x2 weeks. Referrals: COLIN CARRILLO DO [Primary Care Provider] - Discharge Diet: As Tolerated Respiratory Treatments at Home: Deep Breathing/Coughing, Incentive Spirometer Discharge Activity: Balance Activity w/Rest, No Lifting Over 10 Pounds, No Lifting/Push/Pulling Home Care Assistance: None Needed Report the Following to Your Physician Immediately: Shortness of Breath, Nausea, Vomiting, Increase in Pain, Yellow Skin, Fever over 101 Degrees, Unusual Bleeding
--- NOTE | 2020-06-25 08:27 | Operative Report ---
Nonrecallable Operative Report DATE OF SURGERY: 06/25/20 PREOPERATIVE DIAGNOSIS: Biliary dyskinesia POSTOPERATIVE DIAGNOSIS: Same as above OPERATION: Laparoscopic cholecystectomy SURGEON: MAYURI MCKEON RESIDENT DOCTOR: CONSUELO ALLRED ANESTHESIA: GA TISSUE REMOVED OR ALTERED: Gallbladder COMPLICATIONS: None apparent ESTIMATED BLOOD LOSS: Minimal PROCEDURE: Drains/implants: None. Procedure in detail: After informed consent was obtained, the patient was brought to the operating room and laid in the supine position. The area of the abdomen was prepped and draped in a normal sterile fashion. A supraumbilical incision was created with a 15 blade scalpel. Dissection was carried through the subcutaneous tissues using sharp and blunt dissection. The cicatrix was identified, grasped with a Loyda clamp, and retracted upwards. The linea alba fascia was incised sharply, the abdomen was entered sharply. The balloon trocar was inserted, and pneumoperitoneum was achieved. A subxiphoid 5 mm port was then placed under direct laparoscopic visualization. 2 more 5 mm ports were placed in the right upper quadrant in similar fashion. Atraumatic graspers were placed through the 5 mm ports. The gallbladder was retracted cephalad and laterally. Dissection was begun on the triangle of Calot. The cystic duct and cystic artery were fully visualized and skeletonized, seeing the liver through the triangle. Once the critical view of safety was obtained, the cystic duct and cystic artery were clipped and cut with laparoscopic instruments. The gallbladder was then removed from the liver using Bovie electrocautery. The gallbladder was grasped with a large clamp, and pulled out through the supraumbilical port. The camera was reinserted. The hilum was inspected. It was found to be free of any leakage of blood or bile. Once this was confirmed, the 5 mm trochars were removed under direct laparoscopic visualization. The supraumbilical trocar was removed, and pneumoperitoneum was relieved. The supraumbilical fascia was closed using 0 Vicryl suture in [id number] fashion. The overlying skin was closed using 4-0 Vicryl Rapide suture in subcuticular fashion. Dressings were placed, the procedure was concluded. All sponge, instrument, and needle counts were correct x2. Condition: Stable. Consuelo Allred PA-C was scrubbed and present the entirety of the procedure. She assisted with all portions of the procedure including placement of the trochars, manipulation of the gallbladder, removal of the gallbladder, closure of the fascia, and closure of the skin.
[2020-06-25 09:54] LABS: CREATINE KINASE MB 0.87 ng/mL (<4.55)
[2020-06-25 09:57] LABS: TROPONIN I < 0.012 ng/mL
[2020-06-25] MEDS ORDERED: HYDRALAZINE HCL INJ/PF 20 MG/1 ML SDV ONE (10:02)
[2020-06-25] MEDS ORDERED: ROCURONIUM BROMIDE INJ 50 MG/5 ML VIAL IV ONE (14:36)
[2020-06-25] MEDS ORDERED: SUCCINYLCHOLINE CHLORIDE INJ 200 MG/10 ML VIAL ONE (14:36)
[2020-06-25] MEDS ORDERED: NEOSTIGMINE METHYLSULFATE 10 MG/10 ML VIAL ONE (14:36)
[2020-06-25] MEDS ORDERED: PHENYLEPHRINE HCL INJ/PF 10 MG/1 ML SDV ONE (14:36)
[2020-06-25] MEDS ORDERED: LIDOCAINE 2% INJ-PF (20 MG/ML) 2 ML AMPUL ONE (14:36)
[2020-06-25] MEDS ORDERED: GLYCOPYRROLATE 1 MG/5 ML VIAL ONE (14:36)
[2020-06-25] MEDS ORDERED: METOPROLOL TARTRATE PF/INJ 5 MG/5 ML SDV IV ONE (14:36)
--- NOTE | 2020-06-25 15:24 | EKG REPORT ---
SEVERITY:- ABNORMAL ECG - SINUS ARRHYTHMIA, RATE [id number] PROBABLE LEFT VENTRICULAR HYPERTROPHY BORDERLINE PROLONGED QT INTERVAL : Confirmed by: Franco Small MD 25-Jun-2020 15:23:50
[2020-06-25 16:25] VITALS: BP 138/63
== END 2020-06-25 15:00 | disposition home or self-care (01) ==
LOC: OROUT 05:20
PROVIDERS: ATTEND Surgery
DX: K81.1 Chronic cholecystitis (principal); Z03.818 Encounter for observation for suspected exposure to other biological agents ruled out; J44.9 Chronic obstructive pulmonary disease, unspecified; I25.10 Atherosclerotic heart disease of native coronary artery without angina pectoris; R06.02 Shortness of breath; E11.9 Type 2 diabetes mellitus without complications; Z88.0 Allergy status to penicillin
CPT/HCPCS: 93005 ×2; 36415 ×2; 82553; 82962; 82550; 82947; 84132; 85027; 87635; 80053; 84484; 83036; 88304 ×2; 71046; 93010 ×2; 00790; 47562; J3490 ×7; J2250; J3010; J0360; J2710; J2370; J0330; J7060; J7050; J2704; J3370; J1741; C9803; 790; J1170